=== PATIENT | male | born 1975 | race Caucasian/White ===

== ENCOUNTER 2016-08-04 05:26 | Observation (INO) | payer SELFPAY ==
[2016-08-04 06:09] LABS: ABSOLUTE EOSINOPHILS # (AUTO) 0.2 10^3/uL (0.0-0.6); ABSOLUTE LYMPHOCYTES (AUTO) 2.2 10^3/uL (0.5-4.7); ABSOLUTE MONOCYTES (AUTO) 0.7 10^3/uL (0.1-1.4); ABSOLUTE NEUT (AUTO) 9.3 10^3/uL (1.7-8.2); BASOPHILS % (AUTO) 0.3 % (0-2); HEMATOCRIT 40.3 % (37.9-51.0); HGB HCT DIFFERENCE 1.7; LYMPHOCYTES % (AUTO) 17.4 % (13-45); MEAN CORPUSCULAR HEMOGLOBIN 30.7 pg (27.0-33.4); MEAN CORPUSCULAR HGB CONC 34.8 g/dL (32.0-36.0); MEAN CORPUSCULAR VOLUME 88 fl (80-97); MONOCYTES % (AUTO) 5.6 % (3-13); RED BLOOD COUNT 4.58 10^6/uL (4.35-5.55); SEGMENTED NEUTROPHILS % (AUTO) 74.7 % (42-78); WHITE BLOOD COUNT 12.4 10^3/uL (4.0-10.5)
[2016-08-04 06:27] LABS: ALANINE AMINOTRANSFERASE 28 U/L (21-72); ALBUMIN 4.2 g/dL (3.5-5.0); ALKALINE PHOSPHATASE 79 U/L (38-126); ANION GAP 11 (5-19); ASPARTATE AMINO TRANSFERASE 16 U/L (17-59); BILIRUBIN,DIRECT 0.3 mg/dL (0.0-0.4); BILIRUBIN,TOTAL 0.5 mg/dL (0.2-1.3); BLOOD UREA NITROGEN 21 mg/dL (7-20); CALCIUM 9.2 mg/dL (8.4-10.2); CARBON DIOXIDE 26 mmol/L (22-30); CHLORIDE 101 mmol/L (98-107); CREATINE KINASE 41 U/L (55-170); CREATININE RESULT 1.12 mg/dL (0.52-1.25); GLUCOSE 128 mg/dL (75-110); POTASSIUM 4.2 mmol/L (3.6-5.0); SODIUM 138.3 mmol/L (137-145); TOTAL PROTEIN 6.8 g/dL (6.3-8.2)
[2016-08-04] MEDS ORDERED: LIDOCAINE 2% VISCOUS SOLN 20 ML UDCUP PO ONE (06:35)
[2016-08-04] MEDS ORDERED: METOCLOPRAMIDE HCL ORAL SOLN 10 MG/10 ML UDCUP PO ONE (06:35)
[2016-08-04] MEDS ORDERED: MAG HYDROX/AL HYDROX/SIMETH SUSP 30 ML UDCUP PO ONE (06:35)
[2016-08-04 06:39] LABS: CREATINE KINASE MB 0.25 ng/mL (<4.55)
--- NOTE | 2016-08-04 06:41 | RADIOLOGY REPORT (SQ) ---
EXAM DESCRIPTION: CHEST SINGLE VIEW COMPLETED DATE/TIME: 08/04/2016 6:17 am REASON FOR STUDY: CP COMPARISON: None. EXAM PARAMETERS: NUMBER OF VIEWS: One view. TECHNIQUE: Single frontal radiographic view of the chest acquired. RADIATION DOSE: NA LIMITATIONS: As below. FINDINGS: LUNGS AND PLEURA: No opacities, masses or pneumothorax. No pleural effusion. Mild likely emphysematous hyperinflation. Bilateral costophrenic angles minimally clipped off the image. MEDIASTINUM AND HILAR STRUCTURES: No masses. Contour normal. HEART AND VASCULAR STRUCTURES: Heart normal in size. Normal vasculature. BONES: No acute findings. HARDWARE: None in the chest. OTHER: No other significant finding. IMPRESSION: No acute cardiopulmonary findings. TECHNICAL DOCUMENTATION: JOB ID: [id number]
[2016-08-04 06:43] LABS: TROPONIN I < 0.012 ng/mL
--- NOTE | 2016-08-04 07:12 | EKG REPORT ---
SEVERITY:- NORMAL ECG - SINUS RHYTHM : Confirmed by: Phillip Singh 04-Aug-2016 07:11:17
--- NOTE | 2016-08-04 07:30 | ER Document Report ---
ED General - General Chief Complaint: Chest Pain Stated Complaint: CHEST PAIN Time Seen by Provider: 08/04/16 06:06 Mode of Arrival: Ambulatory Information source: Patient Notes: 41-year-old male no previous cardiac history presents with complaints of 2 week duration of generalized abdominal pain worse in the bilateral upper quadrants and epigastric region as well as midsternal. Patient denies any fevers or chills admits to nausea. Pain has been constant throughout. he denies any medical history TRAVEL OUTSIDE OF THE [place] IN LAST 30 DAYS: No - HPI Onset: Other Onset/Duration: Persistent Quality of pain: Cramping Severity: Mild Pain Level: 1 Associated symptoms: Nausea Exacerbated by: Denies Relieved by: Denies Similar symptoms previously: No Recently seen / treated by doctor: No - Related Data Allergies/Adverse Reactions: No Known Allergies Allergy (Unverified 09/15/10 19:04) Past Medical History - Social History Smoking Status: Never Smoker Cigarette use (# per day): No Chew tobacco use (# tins/day): No Smoking Education Provided: No Family History: Reviewed & Not Pertinent Patient has suicidal ideation: No Renal/ Medical History: Denies: Hx Peritoneal Dialysis Psychiatric Medical History: Reports: Hx Depression Surgical Hx: Negative - Immunizations Hx Diphtheria, Pertussis, Tetanus Vaccination: - unknown Review of Systems - Review of Systems Notes: REVIEW OF SYSTEMS: CONSTITUTIONAL : Denies fever, chills, or sweats. Denies recent illness. EENT: Denies eye, ear, throat, or mouth pain or symptoms. Denies nasal or sinus congestion or discharge. Denies throat, tongue, or mouth swelling or difficulty swallowing. CARDIOVASCULAR: Admits to chest RESPIRATORY: Denies cough, cold, or chest congestion. Denies shortness of breath, difficulty breathing, or wheezing. GASTROINTESTINAL: Admits to abdominal pain GENITOURINARY: Denies difficulty urinating, painful urination, burning, frequency, blood in urine, or discharge. MUSCULOSKELETAL: Denies back or neck pain or stiffness. Denies joint pain or swelling. SKIN: Denies rash, lesions or sores. HEMATOLOGIC : Denies easy bruising or bleeding. LYMPHATIC: Denies swollen, enlarged glands. NEUROLOGICAL: Denies confusion or altered mental status. Denies passing out or loss of consciousness. Denies dizziness or lightheadedness. Denies headache. Denies weakness or paralysis or loss of use of either side. Denies problems with gait or speech. Denies sensory loss, numbness, or tingling. Denies seizures. PSYCHIATRIC: Denies anxiety or stress. Denies depression, suicidal ideation, or homicidal ideation. ALL OTHER SYSTEMS REVIEWED AND NEGATIVE. Dictation was performed using [employer] voice recognition software PHYSICAL EXAMINATION: GENERAL: Well-appearing, well-nourished and in no acute distress. HEAD: Atraumatic, normocephalic. EYES: Pupils equal round and reactive to light, extraocular movements intact, sclera anicteric, conjunctiva are normal. ENT: Nares patent, oropharynx clear without exudates. Moist mucous membranes. NECK: Normal range of motion, supple without lymphadenopathy LUNGS: Breath sounds clear to auscultation bilaterally and equal. No wheezes rales or rhonchi. HEART: Regular rate and rhythm without murmurs ABDOMEN: Soft, reproducible tenderness of the abdomen without guarding Musculoskeletal: Normal range of motion, no pitting or edema. No cyanosis. NEUROLOGICAL: Cranial nerves grossly intact. Normal speech, normal gait. Normal sensory, motor exams PSYCH: Normal mood, normal affect. SKIN: Warm, Dry, normal turgor, no rashes or lesions noted. Physical Exam - Vital signs Vitals: Temp Pulse Resp BP Pulse Ox 98.9 F 97 20 125/79 99 08/04/16 05:28 08/04/16 05:28 08/04/16 05:28 08/04/16 05:28 08/04/16 05:28 Course - Re-evaluation Re-evalutation: 08/04/16 07:29 Patient's pain is noncardiac in nature, however troponin was performed and given that the pain is constant this will rule out a cardiac event. Otherwise a CT is in order to evaluate for any intra-abdominal abnormality. Patient believes he is having gastric reflux 08/04/16 07:52 Notified by radiology about acute appy due to 8mm diameter, Dr Eaton consulted 08/04/16 08:37 Patient admitted to surgical - Vital Signs Vital signs: Temp Pulse Resp BP Pulse Ox 98.9 F 97 20 128/68 H 98 08/04/16 05:28 08/04/16 05:28 08/04/16 05:28 08/04/16 07:01 08/04/16 07:01 - Laboratory Result Diagrams: 08/04/16 05:55 08/04/16 05:55 Laboratory results interpreted by me: 08/04/16 08/04/16 05:55 05:55 WBC 12.4 H Plt Count 144 L Absolute Neutrophils 9.3 H BUN 21 H Glucose 128 H AST 16 L Creatine Kinase 41 L - Diagnostic Test Radiology reviewed: Image reviewed, Reports reviewed - Appendicitis Discharge - Discharge Clinical Impression: Acute appendicitis Qualifiers: Acute appendicitis type: with generalized peritonitis Qualified Code(s): K35.2 - Acute appendicitis with generalized peritonitis Abdominal pain Qualifiers: Abdominal location: generalized Qualified Code(s): R10.84 - Generalized abdominal pain Condition: Stable Disposition: ADMITTED OBSERVATION Admitting Provider: Surgicalist Unit Admitted: Surgical Floor
--- NOTE | 2016-08-04 07:52 | RADIOLOGY REPORT (SQ) ---
EXAM DESCRIPTION: CT ABD/PELVIS WITH IV ONLY COMPLETED DATE/TIME: 08/04/2016 7:28 am REASON FOR STUDY: c/o MSCP and epigastric pain as well as nausea and diarrhea COMPARISON: 09/15/2010. TECHNIQUE: CT scan of the abdomen and pelvis performed using helical scanning technique with dynamic intravenous contrast injection. No oral contrast. Images reviewed with lung, soft tissue, and bone windows. Reconstructed coronal and sagittal MPR images reviewed. Delayed images for evaluation of the urinary system also acquired. All images stored on PACS. All CT scanners at this facility use dose modulation, iterative reconstruction, and/or weight based d osing when appropriate to reduce radiation dose to as low as reasonably achievable (ALARA). [facility]: Dose Right [facility]: CareDose [facility]: Dose Right [facility]: Teradose 4D [facility]: PictureMe Universe CONTRAST TYPE AND DOSE: contrast/concentration: Isovue 370.00 mg/ml; Total Contrast Delivered: 89.0 ml; Total Saline Delivered: 70.0 ml RENAL FUNCTION: None required. The patient is less than 50 years old. RADIATION DOSE: Up-to-date CT equipment and radiation dose reduction techniques were employed. CTDIv ol: 5.3 mGy. DLP: 556 mGy-cm.. LIMITATIONS: None. FINDINGS: LOWER CHEST: No significant findings. No nodules or infiltrates. LIVER: Normal size. No masses. No dilated ducts. SPLEEN: Normal size. No focal lesions. PANCREAS: No masses. No significant calcifications. No adjacent inflammation or peripancreatic fluid collections. Pancreatic duct not dilated. GALLBLADDER: No identified stones by CT criteria. No inflammatory changes to suggest cholecystitis. ADRENAL GLANDS: No significant masses or asymmetry. RIGHT KIDNEY AND URETER: No solid masses. No significant calcifications. No hydronephrosis or hyd roureter. LEFT KIDNEY AND URETER: No solid masses. No significant calcifications. No hydronephrosis or hydr oureter. AORTA AND VESSELS: No aneurysm. No dissection. Renal arteries, SMA, celiac without stenosis. RETROPERITONEUM: No retroperitoneal adenopathy, hemorrhage or masses. BOWEL AND PERITONEAL CAVITY: No masses or inflammatory changes. No free fluid or peritoneal masses. Mild mesenteric lymphadenopathy of the right lower abdominal quadrant includes a 1.0 x 0.5 cm lymph n ode, image 56 of series 3. APPENDIX: 0.8 cm diameter fluid-filled taut appearing appendix, image 35 of series 601 suggests early acute appendicitis. PELVIS: No mass or free fluid. Normal bladder. ABDOMINAL WALL: No masses. No hernias. BONES: Moderate L4-5 vacuum disc desiccation. OTHER: No other significant finding. IMPRESSION: Early acute appendicitis pattern. COMMENT: This report was called to AGUSTNÍ CHAPMAN DO at07:43 on 08/04/2016. TECHNICAL DOCUMENTATION: JOB ID: [id number] Quality ID # [id number]: Final reports with documentation of one or more dose reduction techniques (e.g., Au tomated exposure control, adjustment of the mA and/or kV according to patient size, use of iterative reconstruction technique) 2010 [employer]- All Rights Reserved
--- NOTE | 2016-08-04 08:36 | PDOC H&P ---
History of Present Illness Patient complains of: Chest and abdominal pain History of Present Illness: FLY PEREZ is a 41 year old male presented to the ER with several week history of productive cough with chest pain along with fever and chills. Patient also noted beginnings of diffuse abdominal pain that began last night. The pain has been crampy and diffuse patient had episode of emesis. Signs or symptoms of gastrointestinal bleed. Past Medical History Cardiac Medical History: Reports: None Pulmonary Medical History: Reports: None Psychiatric Medical History: Reports: Depression Social History Smoking Status: Former Smoker - Has quit smoking for the past year. Frequency of Alcohol Use: None - Heavy alcohol use in the past but has quit for the past couple of years. Family History Family History: Reviewed & Not Pertinent Parental Family History Reviewed: No Children Family History Reviewed: No Sibling(s) Family History Reviewed.: No Medication/Allergy Allergies/Adverse Reactions: No Known Allergies Allergy (Unverified 09/15/10 19:04) Physical Exam Vital Signs: Temp Pulse Resp BP Pulse Ox 98.9 F 97 20 128/68 H 98 08/04/16 05:28 08/04/16 05:28 08/04/16 05:28 08/04/16 07:01 08/04/16 07:01 Intake & Output 08/03/16 08/04/16 08/05/16 06:59 06:59 06:59 Weight 81.647 kg General appearance: PRESENT: cooperative, mild distress Eye exam: PRESENT: conjunctiva pink Neck exam: PRESENT: other - No tenderness no abnormal masses Respiratory exam: PRESENT: clear to auscultation radhames Cardiovascular exam: PRESENT: RRR GI/Abdominal exam: PRESENT: other - Very soft and flat with diffuse abdominal tenderness but no peritoneal signs. No palpable mass in the right lower quadrant with deep palpation. Extremities exam: PRESENT: other - No swelling. Results Laboratory Results: 08/04/16 05:55 08/04/16 05:55 08/04/16 08/04/16 08/04/16 05:55 05:55 05:55 WBC 12.4 H RBC 4.58 Hgb 14.0 Hct 40.3 MCV 88 MCH 30.7 MCHC 34.8 RDW 13.0 Plt Count 144 L Seg Neutrophils % 74.7 Lymphocytes % 17.4 Monocytes % 5.6 Eosinophils % 2.0 Basophils % 0.3 Absolute Neutrophils 9.3 H Absolute Lymphocytes 2.2 Absolute Monocytes 0.7 Absolute Eosinophils 0.2 Absolute Basophils 0.0 Sodium 138.3 Potassium 4.2 Chloride 101 Carbon Dioxide 26 Anion Gap 11 BUN 21 H Creatinine 1.12 Est GFR ( Amer) > 60 Est GFR (Non-Af Amer) > 60 Glucose 128 H Calcium 9.2 Total Bilirubin 0.5 AST 16 L ALT 28 Alkaline Phosphatase 79 Total Protein 6.8 Albumin 4.2 Lipase 113.5 08/04/16 08/04/16 05:55 05:55 Creatine Kinase 41 L CK-MB (CK-2) 0.25 Troponin I < 0.012 Impressions: Chest X-Ray 08/04/16 06:01 IMPRESSION: No acute cardiopulmonary findings. Abdomen/Pelvis CT 08/04/16 06:36 IMPRESSION: Early acute appendicitis pattern. Assessment & Plan - Diagnosis (1) Bronchitis Is this a current diagnosis for this admission?: YesPlan: Will consult hospitalist for management. (2) Abdominal pain Qualifiers: Abdominal location: generalized Qualified Code(s): R10.84 - Generalized abdominal pain Is this a current diagnosis for this admission?: YesPlan: Diffuse abdominal pain but abdomen very soft and CT scan that demonstrates no abnormalities other than a 8 mm appendix and mild mesenteric lymphadenopathy. No localization of symptoms nor signs. Possibility of early appendicitis does exist but without focal tenderness in the right lower quadrant I am reluctant to operate. I will admit the patient for observation
[2016-08-04] MEDS: NORMAL SALINE 1000 ML 1,000 ML IV PRN ×2 (08:56→16:22)
[2016-08-04] MEDS ORDERED: GLYCOPYRROLATE INJ 0.4 MG/2 ML VIAL ONE (09:15)
[2016-08-04] MEDS ORDERED: METOCLOPRAMIDE HCL INJ/PF 10 MG/2 ML SDV ONE (09:15)
[2016-08-04] MEDS ORDERED: NEOSTIGMINE METHYLSULFATE 10 MG/10 ML VIAL ONE (09:15)
[2016-08-04] MEDS ORDERED: ROCURONIUM BROMIDE INJ 50 MG/5 ML VIAL IV ONE (09:15)
[2016-08-04] MEDS ORDERED: SUCCINYLCHOLINE CHLORIDE INJ 200 MG/10 ML VIAL ONE (09:15)
[2016-08-04] MEDS ORDERED: ONDANSETRON HCL INJ/PF 4 MG/2 ML SDV ONE ×2 (09:15→20:46)
[2016-08-04] MEDS ORDERED: DEXAMETHASONE SOD PHOSPHATE INJ 4 MG/1 ML VIAL ONE (09:15)
[2016-08-04] MEDS ORDERED: ENOXAPARIN SODIUM INJ 40 MG/0.4 ML DISP.SYRIN SUBCUT ONE (10:00)
[2016-08-04] MEDS: MORPHINE SULFATE 10 MG/ML INJ IV PRN ×3 (13:14→20:50)
--- NOTE | 2016-08-04 15:20 | PDOC PROGRESS REPORT ---
Subjective Progress Note for:: 08/04/16 Subjective:: Still with diffuse abdominal pain. Not localizing. Decreased after pain medication. Physical Exam Vital Signs: Temp Pulse Resp BP Pulse Ox 98.4 F 75 20 131/78 H 100 08/04/16 10:58 08/04/16 10:58 08/04/16 10:58 08/04/16 10:58 08/04/16 10:58 Intake & Output 08/03/16 08/04/16 08/05/16 06:59 06:59 06:59 Weight 73.2 kg General appearance: PRESENT: no acute distress, cooperative GI/Abdominal exam: PRESENT: other - Soft, nondistended, minimal diffuse abdominal tenderness and no focal tenderness in the right lower quadrant even with deep palpation. No peritoneal signs. Results Laboratory Results: 08/04/16 09:33 Troponin I < 0.012 Impressions: Chest X-Ray 08/04/16 06:01 IMPRESSION: No acute cardiopulmonary findings. Abdomen/Pelvis CT 08/04/16 06:36 IMPRESSION: Early acute appendicitis pattern. Assessment & Plan - Diagnosis (1) Bronchitis Is this a current diagnosis for this admission?: Yes (2) Abdominal pain Qualifiers: Abdominal location: generalized Qualified Code(s): R10.84 - Generalized abdominal pain Is this a current diagnosis for this admission?: YesPlan: Diffuse abdominal pain but abdomen very soft and CT scan that demonstrates no abnormalities other than a 8 mm appendix and mild mesenteric lymphadenopathy. No localization of symptoms nor signs. I have re-reviewed the CT scan with the radiologist. The appendix does measure at 8 mm but there is no inflammatory changes. With no right lower quadrant abdominal tenderness with deep palpation I do not think he has appendicitis. Will continue to keep the patient n.p.o. As appendicitis is ruled out, will consider upper endoscopy to rule out esophagitis and peptic ulcer disease.
[2016-08-04 17:08] LABS: ABSOLUTE LYMPHOCYTES (AUTO) 1.2 10^3/uL (0.5-4.7); ABSOLUTE MONOCYTES (AUTO) 0.7 10^3/uL (0.1-1.4); ABSOLUTE NEUT (AUTO) 7.7 10^3/uL (1.7-8.2); BASOPHILS % (AUTO) 0.3 % (0-2); EOSINOPHILS % (AUTO) 0.1 % (0-6); HEMOGLOBIN 13.5 g/dL (13.5-17.0); HGB HCT DIFFERENCE 0.5; LYMPHOCYTES % (AUTO) 12.6 % (13-45); MEAN CORPUSCULAR HEMOGLOBIN 30.1 pg (27.0-33.4); MEAN CORPUSCULAR HGB CONC 33.8 g/dL (32.0-36.0); MEAN CORPUSCULAR VOLUME 89 fl (80-97); MONOCYTES % (AUTO) 6.9 % (3-13); RED BLOOD COUNT 4.49 10^6/uL (4.35-5.55); RED CELL DISTRIBUTION WIDTH 12.7 % (11.5-14.0); SEGMENTED NEUTROPHILS % (AUTO) 80.1 % (42-78); WHITE BLOOD COUNT 9.6 10^3/uL (4.0-10.5)
--- NOTE | 2016-08-04 17:54 | PDOC CONSULTATION ---
Consultation Consult Date: 08/04/16 Attending physician:: NITHYA GARDNER Consult reason:: chest pain History of Present Illness Admission Date/PCP: 08/04/16 08:36 Patient complains of: Abdominal pain and chest pain History of Present Illness: FLY PEREZ is a 41 year old male presented to the ER with several week history of chest pain along with fever and chills. Patient also noted beginnings of diffuse abdominal pain that began last night. The pain has been crampy and diffuse patient had episode of emesis in the ER. Denies any melena hematochezia or hematemesis. Patient admitted by surgical service due to findings suggestive of appendicitis on CT scan. consultation was made for evaluation of chest pain. Patient reports that he work with heavy physical activity at times without having any chest pain. There is no shortness of breath. No lower extremity edema. No leg pains associated. He reports being active. No recent prolonged traveling. He had a chest pain about 2 weeks before admission where it is noted to have some bloating. At times there will be burping with gaseous sensation but no associated shortness of breath. For the past 3 days he was having cough sinus congestion and sore throat. Patient started to develop some fever as well as sweating. Past Medical History Cardiac Medical History: Reports: None Denies: Congestive Heart Failure, Myocardial Infarction, Hypertension Pulmonary Medical History: Reports: None Denies: Asthma, Bronchitis, Chronic Obstructive Pulmonary Disease (COPD), Pneumonia, Tuberculosis Neurological Medical History: Denies: Seizures Renal/ Medical History: Denies: End Stage Renal Disease GI Medical History: Denies: Cirrhosis, Gastroesophageal Reflux Disease Musculoskeltal Medical History: Denies: Arthritis Psychiatric Medical History: Reports: Depression, Substance Abuse Denies: Bipolar Disorder Hematology: Denies: Anemia, Bleeding Tendencies Past Surgical History Past Surgical History: Reports: Other - Patient denies any recent operations Social History Smoking Status: Former Smoker - Fluid 2 years ago Frequency of Alcohol Use: None - Heavy alcohol use in the past but has quit for the past couple of years. Hx Recreational Drug Use: Yes Drugs: Other - Prescription narcotics but quit 2 years ago - Advance Directive Resuscitation Status: Full Code Family History Family History: None, Other - no reported premature coronary artery disease Parental Family History Reviewed: Yes Children Family History Reviewed: Yes Sibling(s) Family History Reviewed.: Yes Medication/Allergy Allergies/Adverse Reactions: shellfish derived Allergy (Mild, Verified 08/04/16 15:00) Nausea Review of Systems Constitutional: PRESENT: chills, fever(s). ABSENT: headache(s), night sweats, weight gain, weight loss Eyes: ABSENT: visual disturbances Ears: ABSENT: hearing changes Nose, Mouth, and Throat: ABSENT: mouth pain, vertigo Cardiovascular: PRESENT: chest pain. ABSENT: dyspnea on exertion, edema, orthropnea, palpitations Respiratory: PRESENT: cough, dyspnea - Occasional for the past 3 days more of easy fatigability, sputum - Yellowish. ABSENT: hemoptysis Gastrointestinal: PRESENT: abdominal pain - Started early this morning, nausea, vomiting. ABSENT: constipation, diarrhea, hematemesis, hematochezia, melena Genitourinary: ABSENT: difficulty urinating, dysuria, hematuria Musculoskeletal: ABSENT: joint swelling Integumentary: ABSENT: pruritus, rash, wounds Neurological: ABSENT: abnormal gait, abnormal speech, confusion, dizziness, focal weakness, syncope Psychiatric: ABSENT: anxiety, depression, homidical ideation, suicidal ideation Endocrine: ABSENT: cold intolerance, heat intolerance, polydipsia, polyuria Hematologic/Lymphatic: ABSENT: easy bleeding, easy bruising Physical Exam Vital Signs: Temp Pulse Resp BP Pulse Ox 99.2 F 74 20 138/76 H 98 08/04/16 16:07 08/04/16 16:07 08/04/16 16:07 08/04/16 16:07 08/04/16 16:07 Intake & Output 08/03/16 08/04/16 08/05/16 06:59 06:59 06:59 Weight 73.2 kg General appearance: PRESENT: no acute distress, well-developed, well-nourished Head exam: PRESENT: atraumatic, normocephalic Eye exam: PRESENT: conjunctiva pink, EOMI, PERRLA. ABSENT: scleral icterus Ear exam: PRESENT: normal external ear exam. ABSENT: drainage Mouth exam: PRESENT: moist, neck supple, tongue midline Throat exam: ABSENT: post pharyngeal erythema, tonsillar erythema Neck exam: ABSENT: carotid bruit, JVD, lymphadenopathy, thyromegaly Respiratory exam: PRESENT: clear to auscultation radhames, unlabored. ABSENT: rales , rhonchi, wheezes Cardiovascular exam: PRESENT: RRR. ABSENT: diastolic murmur, rubs, systolic murmur Pulses: PRESENT: normal dorsalis pedis pul Vascular exam: PRESENT: normal capillary refill GI/Abdominal exam: PRESENT: guarding - voluntary, normal bowel sounds, soft, tenderness - Periumbilically diffusely. ABSENT: distended, mass - Limited due to abdominal discomfort, organolmegaly - Limited to the abdominal discomfort, rebound Rectal exam: PRESENT: deferred Extremities exam: PRESENT: full ROM. ABSENT: calf tenderness, clubbing, pedal edema Neurological exam: PRESENT: alert, awake, oriented to person, oriented to place , oriented to time, oriented to situation, CN II-XII grossly intact. ABSENT: motor sensory deficit Psychiatric exam: PRESENT: appropriate affect, normal mood. ABSENT: homicidal ideation, suicidal ideation Skin exam: PRESENT: dry, intact, warm. ABSENT: cyanosis, rash Results Laboratory Results: 08/04/16 16:55 08/04/16 16:55 WBC 9.6 RBC 4.49 Hgb 13.5 Hct 40.0 MCV 89 MCH 30.1 MCHC 33.8 RDW 12.7 Plt Count 125 L Seg Neutrophils % 80.1 H Lymphocytes % 12.6 L Monocytes % 6.9 Eosinophils % 0.1 Basophils % 0.3 Absolute Neutrophils 7.7 Absolute Lymphocytes 1.2 Absolute Monocytes 0.7 Absolute Eosinophils 0.0 Absolute Basophils 0.0 08/04/16 09:33 Troponin I < 0.012 Impressions: Chest X-Ray 08/04/16 06:01 IMPRESSION: No acute cardiopulmonary findings. Abdomen/Pelvis CT 08/04/16 06:36 IMPRESSION: Early acute appendicitis pattern. Assessment & Plan - Diagnosis (1) Chest pain Qualifiers: Chest pain type: unspecified Qualified Code(s): R07.9 - Chest pain, unspecified Is this a current diagnosis for this admission?: Yes (2) Abdominal pain Qualifiers: Abdominal location: generalized Qualified Code(s): R10.84 - Generalized abdominal pain Is this a current diagnosis for this admission?: Yes (3) History of depression Is this a current diagnosis for this admission?: Yes (4) History of substance abuse Is this a current diagnosis for this admission?: Yes - Time Time Spent: 50 to 70 Minutes - Plan Summary Plan Summary: We will serially obtain cardiac enzymes. We will obtain echocardiogram to check for wall motion abnormality. If echocardiogram is normal, chest pain most likely noncardiac. Patient had atypical symptoms. I will try him on twice a day proton pump inhibitors see if the discomfort would go away. In the meantime I will begin antibiotic for bronchitis. Thank you so much for this consultation. We will follow the patient with you.
[2016-08-04 18:31] LABS: CREATINE KINASE MB < 0.22 ng/mL (<4.55); TROPONIN I < 0.012 ng/mL
[2016-08-04] MEDS: LEVOFLOXACIN 750 MG/D5W RTU 750 MG/150 ML RTUPB IV SCH (18:47)
[2016-08-04] MEDS ORDERED: ONDANSETRON HCL INJ/PF 4 MG/2 ML SDV IV PRN (20:39)
[2016-08-05] MEDS: MORPHINE SULFATE 10 MG/ML INJ IV PRN ×4 (00:22→16:22)
[2016-08-05] MEDS: NORMAL SALINE 1000 ML 1,000 ML IV PRN (04:27)
[2016-08-05] MEDS: LANSOPRAZOLE 30 MG TAB.RAP.DR PO SCH ×2 (06:22→18:02)
[2016-08-05] MEDS ORDERED: ACETAMINOPHEN 325 MG TABLET PO PRN ×2 (07:01→12:30)
--- NOTE | 2016-08-05 09:38 | PDOC PROGRESS REPORT ---
Subjective Progress Note for:: 08/05/16 Subjective:: Patient's chest pain has resolved. Abdominal pain is better. Patient reports some headache with the morphine. Denies any diaphoresis, shortness of breath, PND orthopnea. No reported chills or fever. Physical Exam Vital Signs: Temp Pulse Resp BP Pulse Ox 98.3 F 88 20 124/70 98 08/05/16 07:37 08/05/16 07:37 08/05/16 07:37 08/05/16 07:37 08/05/16 07:37 Intake & Output 08/04/16 08/05/16 08/06/16 06:59 06:59 06:59 Output Total 450 Balance -450 Weight 73.2 kg General appearance: PRESENT: no acute distress, cooperative Head exam: PRESENT: normocephalic Eye exam: PRESENT: EOMI Mouth exam: PRESENT: moist, neck supple Neck exam: ABSENT: JVD Respiratory exam: PRESENT: clear to auscultation radhames. ABSENT: rhonchi, wheezes Cardiovascular exam: PRESENT: RRR. ABSENT: gallop GI/Abdominal exam: PRESENT: hyperactive bowel sounds, soft. ABSENT: distended, tenderness Extremities exam: ABSENT: pedal edema Neurological exam: PRESENT: alert, awake, oriented to situation Skin exam: PRESENT: warm. ABSENT: cyanosis, dry Results Laboratory Results: 08/04/16 16:55 08/04/16 16:55 WBC 9.6 RBC 4.49 Hgb 13.5 Hct 40.0 MCV 89 MCH 30.1 MCHC 33.8 RDW 12.7 Plt Count 125 L Seg Neutrophils % 80.1 H Lymphocytes % 12.6 L Monocytes % 6.9 Eosinophils % 0.1 Basophils % 0.3 Absolute Neutrophils 7.7 Absolute Lymphocytes 1.2 Absolute Monocytes 0.7 Absolute Eosinophils 0.0 Absolute Basophils 0.0 08/04/16 08/04/16 08/04/16 09:33 17:48 17:48 Creatine Kinase 33 L CK-MB (CK-2) < 0.22 Troponin I < 0.012 < 0.012 Impressions: Chest X-Ray 08/04/16 06:01 IMPRESSION: No acute cardiopulmonary findings. Abdomen/Pelvis CT 08/04/16 06:36 IMPRESSION: Early acute appendicitis pattern. Assessment & Plan - Diagnosis (1) Chest pain Qualifiers: Chest pain type: unspecified Qualified Code(s): R07.9 - Chest pain, unspecified Is this a current diagnosis for this admission?: Yes (2) Abdominal pain Qualifiers: Abdominal location: generalized Qualified Code(s): R10.84 - Generalized abdominal pain Is this a current diagnosis for this admission?: Yes (3) History of depression Is this a current diagnosis for this admission?: Yes (4) History of substance abuse Is this a current diagnosis for this admission?: Yes - Time Time Spent with patient: 25-34 minutes - Plan Summary Plan Summary: Patient's chest pain probably related to gastrointestinal symptoms. Symptoms improved with proton pump inhibitor and analgesics. His cardiac enzymes were negative. EKG was likewise reportedly normal. Awaiting echocardiogram for wall motion abnormalities. If negative, patient can have stress test on an outpatient basis if desired. Continue antibiotic for bronchitis symptoms. Continue supportive care.
[2016-08-05] MEDS ORDERED: LIDOCAINE 2% INJ-PF (100 MG/5 ML) SYRINGE ONE (10:08)
[2016-08-05] MEDS ORDERED: FENTANYL CITRATE INJ/PF 250 MCG/5 ML AMPULE ONE (10:08)
[2016-08-05] MEDS: ENOXAPARIN SODIUM INJ 40 MG/0.4 ML DISP.SYRIN SUBCUT SCH (10:08)
[2016-08-05] MEDS ORDERED: DEXMEDETOMIDINE INJ 80 MCG/20 ML VIAL IV ONE (10:09)
[2016-08-05] MEDS ORDERED: ACETAMINOPHEN 100 ML IV ONE (10:09)
[2016-08-05] MEDS ORDERED: MIDAZOLAM 2 MG/2 ML INJ ONE (10:09)
[2016-08-05] MEDS ORDERED: PROPOFOL INJ 200 MG/20 ML VIAL IV ONE (10:09)
[2016-08-05] MEDS ORDERED: BUPIVACAINE HCL 0.25 % INJ/PF (2.5 MG/1 ML) 30 ML VIAL ONE (10:50)
[2016-08-05] MEDS ORDERED: CEFAZOLIN INJ 1 GM VIAL ONE (10:57)
[2016-08-05] MEDS ORDERED: FENTANYL CITRATE INJ/PF 100 MCG/2 ML AMPUL ONE (12:28)
--- NOTE | 2016-08-05 13:09 | OPERATIVE REPORT E ---
Operative Report NAME: FLY PEREZ : 1975 AGE: 41Y DATE OF SURGERY: ROOM: 212 PREOPERATIVE DIAGNOSIS: Acute appendicitis. POSTOPERATIVE DIAGNOSIS: Acute appendicitis. OPERATION: Laparoscopic appendectomy. SURGEON: SIM SHEA M.D. 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 He had a CAT scan yesterday which showed a dilated appendix. The patient, however, did not have any tenderness in the abdomen when initially seen, however, this morning, patient complained of pains in both lower quadrants. He was then taken to the OR for a laparoscopic appendectomy. PROCEDURE: After adequate general anesthesia, the patient was placed in the supine position and the abdomen prepped and draped in the usual sterile fashion. An infraumbilical incision was made and the fascia divided and the Alyson trocar inserted through the fascia into the abdominal cavity. CO2 insufflated to 15 mmHg. Two other trocars were placed, a 5-mm in the suprapubic and a 12-mm in the left lower quadrant. The cecum was then identified but the base of the appendix, I had difficulty lifting it up. Because of this, there were some adhesions in the lateral gutter that were lysed with the use of Harmonic bethany. Next, the appendix was then bluntly dissected and going to the retrocecal area. It was noted to be inflamed with a few areas of starting necrosis. The mesoappendix was subsequently divided with the use of Harmonic bethany while lifting up the appendix with a Earnest. The base of the appendix was subsequently stapled with an Endo BENITO. The stump was noted to be relatively free of bleeding, however, a Hemoclip was placed on the one area that appears to be oozing a little bit. The appendix was then placed in an Endobag and pulled out through the epigastric port. Next, the appendiceal stump was then checked and no evidence of bleeding was noted. The area was gently irrigated and suctioned out. All of the trocars were then removed and no evidence of bleeding at the trocar sites. The fascial defect in the infraumbilical area was closed with a single [id number] suture using 0 Vicryl. The left lower quadrant fascial defect was closed with a single suture using 0 Vicryl. All of the skin incisions were then closed with running subcuticular closure using 4-0 Vicryl undyed. Sterile dressings with Steri-Strips were placed over the incision sites. The patient tolerated the procedure well and was brought to the recovery room in satisfactory condition. The needle, sponge and instrument counts were all correct and estimated blood loss was minimal. DICTATING PHYSICIAN: SIM SHEA M.D. [id number] PHY#: [id number] ID: [id number] JOB#: [id number] ACCT: [id number] cc:SIM SHEA M.D. >
[2016-08-05] MEDS: LEVOFLOXACIN 750 MG/D5W RTU 750 MG/150 ML RTUPB IV SCH (18:01)
[2016-08-05] MEDS: OXYCODONE-ACETAMINOPHEN 5-325 MG TABLET PO PRN (19:48)
[2016-08-06] MEDS: OXYCODONE-ACETAMINOPHEN 5-325 MG TABLET PO PRN ×3 (00:02→08:19)
[2016-08-06] MEDS: LANSOPRAZOLE 30 MG TAB.RAP.DR PO SCH (05:14)
[2016-08-06] MEDS: NORMAL SALINE 1000 ML 1,000 ML IV PRN (05:21)
[2016-08-06 06:07] LABS: ABSOLUTE LYMPHOCYTES (AUTO) 2.4 10^3/uL (0.5-4.7); ABSOLUTE MONOCYTES (AUTO) 0.7 10^3/uL (0.1-1.4); ABSOLUTE NEUT (AUTO) 7.6 10^3/uL (1.7-8.2); BASOPHILS % (AUTO) 0.4 % (0-2); EOSINOPHILS % (AUTO) 0.3 % (0-6); HEMATOCRIT 37.5 % (37.9-51.0); HEMOGLOBIN 12.7 g/dL (13.5-17.0); HGB HCT DIFFERENCE 0.6; LYMPHOCYTES % (AUTO) 22.1 % (13-45); MEAN CORPUSCULAR HEMOGLOBIN 30.3 pg (27.0-33.4); MEAN CORPUSCULAR VOLUME 89 fl (80-97); MONOCYTES % (AUTO) 6.6 % (3-13); RED CELL DISTRIBUTION WIDTH 13.1 % (11.5-14.0); SEGMENTED NEUTROPHILS % (AUTO) 70.6 % (42-78); WHITE BLOOD COUNT 10.8 10^3/uL (4.0-10.5)
[2016-08-06 06:28] LABS: ANION GAP 10 (5-19); BLOOD UREA NITROGEN 11 mg/dL (7-20); CARBON DIOXIDE 27 mmol/L (22-30); CHLORIDE 102 mmol/L (98-107); CREATININE RESULT 0.93 mg/dL (0.52-1.25); GLUCOSE 95 mg/dL (75-110); POTASSIUM 3.9 mmol/L (3.6-5.0); SODIUM 139.2 mmol/L (137-145)
[2016-08-06] MEDS: ENOXAPARIN SODIUM INJ 40 MG/0.4 ML DISP.SYRIN SUBCUT SCH (08:18)
--- NOTE | 2016-08-06 09:32 | PDOC PROGRESS REPORT ---
Subjective Progress Note for:: 08/06/16 Subjective:: Patient voices no complaints at this time. Headache resolved. No chest pain. Abdominal pain is better. Patient tolerated surgery well. Tolerating oral intake. Physical Exam Vital Signs: Temp Pulse Resp BP Pulse Ox 97.7 F 62 18 117/76 96 08/06/16 08:04 08/06/16 08:04 08/06/16 08:04 08/06/16 08:04 08/06/16 08:04 Intake & Output 08/05/16 08/06/16 08/07/16 06:59 06:59 06:59 Intake Total 2250 Output Total 450 5 Balance -450 2245 Weight 73.2 kg General appearance: PRESENT: no acute distress, cooperative Head exam: PRESENT: normocephalic Eye exam: PRESENT: EOMI Mouth exam: PRESENT: moist, neck supple Neck exam: ABSENT: JVD Respiratory exam: PRESENT: clear to auscultation radhames. ABSENT: rhonchi, wheezes Cardiovascular exam: PRESENT: RRR. ABSENT: gallop GI/Abdominal exam: PRESENT: hypoactive bowel sounds, soft. ABSENT: distended Extremities exam: ABSENT: pedal edema Neurological exam: PRESENT: alert, awake, oriented to person, oriented to place , oriented to time, oriented to situation Skin exam: PRESENT: dry, warm. ABSENT: cyanosis Results Laboratory Results: 08/06/16 05:10 08/06/16 05:10 08/06/16 08/06/16 05:10 05:10 WBC 10.8 H RBC 4.20 L Hgb 12.7 L Hct 37.5 L MCV 89 MCH 30.3 MCHC 34.0 RDW 13.1 Plt Count 127 L Seg Neutrophils % 70.6 Lymphocytes % 22.1 Monocytes % 6.6 Eosinophils % 0.3 Basophils % 0.4 Absolute Neutrophils 7.6 Absolute Lymphocytes 2.4 Absolute Monocytes 0.7 Absolute Eosinophils 0.0 Absolute Basophils 0.0 Sodium 139.2 Potassium 3.9 Chloride 102 Carbon Dioxide 27 Anion Gap 10 BUN 11 Creatinine 0.93 Est GFR ( Amer) > 60 Est GFR (Non-Af Amer) > 60 Glucose 95 Calcium 9.0 08/04/16 08/04/16 08/04/16 09:33 17:48 17:48 Creatine Kinase 33 L CK-MB (CK-2) < 0.22 Troponin I < 0.012 < 0.012 Impressions: Chest X-Ray 08/04/16 06:01 IMPRESSION: No acute cardiopulmonary findings. Abdomen/Pelvis CT 08/04/16 06:36 IMPRESSION: Early acute appendicitis pattern. Assessment & Plan - Diagnosis (1) Chest pain Qualifiers: Chest pain type: unspecified Qualified Code(s): R07.9 - Chest pain, unspecified Is this a current diagnosis for this admission?: Yes (2) Abdominal pain Qualifiers: Abdominal location: generalized Qualified Code(s): R10.84 - Generalized abdominal pain Is this a current diagnosis for this admission?: Yes (3) History of depression Is this a current diagnosis for this admission?: Yes (4) History of substance abuse Is this a current diagnosis for this admission?: Yes - Time Time Spent with patient: 15-24 minutes - Plan Summary Plan Summary: Patient can be discharged home from the medical standpoint. Patient can go home with oral Augmentin for a total of 7 days. Follow-up echocardiogram report as outpatient with primary care physician. Stress test outpatient. We will sign off from his case. Please reconsult as as needed.
[2016-08-06 10:46] VITALS: BP 124/70
--- NOTE | 2016-08-06 12:28 | DISCHARGE SUMMARY E ---
Discharge Summary NAME: FLY PEREZ : 1975 AGE: 41Y ADMITTED: 08/04/2016 DISCHARGED: 08/06/2016 FINAL DIAGNOSIS: 1. Acute appendicitis. 2. Bronchitis. HOSPITAL COURSE: This is a 41-year-old male who was admitted for cough, chest pains, and fever and chills which started about a week prior. Also noted to have diffuse abdominal pains the night prior to admission. He had a CAT scan of the abdomen that revealed dilated appendix but no evidence of inflammation. Patient did not have any abdominal tenderness when see by Dr. Eaton on admission. Hospitalist consultation was done with Dr. Gibson who diagnosed him to have bronchitis. However, on 08/05/2016 patient complained of more pains in the abdomen and more tenderness primarily in the right lower quadrant. He was then taken to the OR for lap appendectomy on 08/05/2016 for acute appendicitis. Postoperatively he did well and remained afebrile and tolerating soft diet. He was then discharged improved on 08/06/2016 with the above final diagnosis. Patient to continue on Augmentin 875 mg b.i.d. for a week by order of Dr. Gibson the hospitalist. Patient advised not to do any lifting more than 10 pounds for the next week and the gradually increase his activity. He can have a regular diet. He will be seen in the [facility] in about 2 weeks. A prescription for Percocet was given to take 1 every 6 hours as needed p.r.n. for pain. DICTATING PHYSICIAN: SIM SHEA M.D. [id number] PHY#: [id number] ID: [id number] JOB#: [id number] ACCT: [id number] cc:SIM SHEA M.D., E. R. >
--- NOTE | 2016-08-08 17:32 | XCELERA REPORT ---
[address] [address] Transthoracic Echocardiogram Report Name: FLY PEREZ Age: 41 yrs Gender: Male : 1975 Patient Status: Inpatient Patient Location: 2N\S\212\S\B Study Date: 08/05/2016 09:02 AM Height: 72 in Weight: 161 lb BSA: 1.9 m2 Procedure: A two-dimensional transthoracic echocardiogram with color flow and Doppler was performed. The study was technically adequate with some images being suboptimal in quality. Reason For Study: chest pain History: chest pain. Ordering Physician: ZHANNA NUNO Performed By: Horace Grant Interpretation Summary The left ventricle is normal in size. There is normal left ventricular wall thickness. LV EF is 65% Left ventricular systolic function is normal. Doppler measurements suggest normal left ventricular diastolic function The left ventricular wall motion is normal. There is no thrombus. There is no ventricular septal defect visualized. The right ventricle is normal in size and function. The right atrium is normal. The left atrial size is normal. The interatrial septum is intact with no evidence for an atrial septal defect. There is no mitral valve stenosis. There is no evidence of mitral valve prolapse. There is a mild amount of mitral regurgitation The aortic valve is trileaflet. The aortic valve opens well. There is no aortic valve stenosis There is no LVOT obstruction. There is a trace amount of aortic regurgitation There is no tricuspid stenosis. There is a trace amount of tricuspid regurgitation Right ventricular systolic pressure is normal. RVAP is 29 mm of Hg , with RA mean of 5. There is no pericardial effusion. MMode/2D Measurements \T\ Calculations RVDd: 2.5 cm LVIDd: 5.0 cm FS: 41.0 % Ao root diam: 3.0 cm IVSd: 0.78 cm LVIDs: 2.9 cm EDV(Teich): 118.2 ml LVPWd: 0.84 cm ESV(Teich): 33.5 ml Ao root area: 7.1 cm2 EF(Teich): 71.6 % LA dimension: 3.4 cm Doppler Measurements \T\ Calculations MV E max miriam: MV P1/2t max miriam: Ao V2 max: LV V1 max P.9 cm/sec 69.6 cm/sec 151.3 cm/sec 5.2 mmHg MV A max miriam: MV P1/2t: 63.5 msec Ao max PG: LV V1 max: 50.0 cm/sec 9.2 mmHg 113.5 cm/sec MV E/A: 1.4 MVA(P1/2t): 3.5 cm2 MV dec slope: 320.8 cm/sec2 PA V2 max: PI end-d miriam: TR max miriam: 96.7 cm/sec 100.4 cm/sec 242.8 cm/sec PA max PG: TR max P.7 mmHg 23.6 mmHg Left Ventricle The left ventricle is normal in size. There is normal left ventricular wall thickness. LV EF is 65%. Left ventricular systolic function is normal. Doppler measurements suggest normal left ventricular diastolic function. The left ventricular wall motion is normal. There is no thrombus. There is no ventricular septal defect visualized. Right Ventricle The right ventricle is normal in size and function. Atria The right atrium is normal. The left atrial size is normal. The interatrial septum is intact with no evidence for an atrial septal defect. Mitral Valve There is no evidence of mitral valve prolapse. There is no vegetation seen on the mitral valve. There is no mitral valve stenosis. There is a mild amount of mitral regurgitation. Aortic Valve The aortic valve is trileaflet. The aortic valve opens well. There is no aortic valvular vegetation. There is no aortic valve stenosis. There is no LVOT obstruction. There is a trace amount of aortic regurgitation. Tricuspid Valve There is no tricuspid stenosis. There is a trace amount of tricuspid regurgitation. Right ventricular systolic pressure is normal. RVAP is 29 mm of Hg , with RA mean of 5. Pulmonic Valve There is no pulmonic valvular stenosis. There is a trace amount of pulmonic regurgitation. Great Vessels The aortic root is normal size. Effusions There is no pericardial effusion. : ZHANNA NUNO > Pricila Castro
== END 2016-08-06 11:42 | disposition home or self-care (01) ==
LOC: ER 05:26 → EH 08:36 → UNDOADMOB 08:56 → 2N 10:45
PROVIDERS: ATTEND Surgery
PROC: 0DTJ4ZZ Resection of Appendix, Percutaneous Endoscopic Approach (ICD-10-PCS; principal; 2016-08-04)
DX: K35.3 Acute appendicitis with localized peritonitis (principal); J40 Bronchitis, not specified as acute or chronic; R59.1 Generalized enlarged lymph nodes; G44.40 Drug-induced headache, not elsewhere classified, not intractable; T40.2X5A Adverse effect of other opioids, initial encounter; Y92.239 Unspecified place in hospital as the place of occurrence of the external cause; Z87.891 Personal history of nicotine dependence; Z87.898 Personal history of other specified conditions
CPT/HCPCS: 93005; 99285; 96372; 36415 ×2; 82553; 82550; 83690; 85025 ×2; 80048; 80053; 84484; 88304 ×2; 93306; 71010; 74177; 93010; 44970; G0378 ×4; J2250; J0690; J3490 ×6; J1100; J3010 ×2; J2001; J2765; J2270 ×2; J1650 ×2; J0330; J2405; J7030 ×3; J2704; J1956 ×2; J0131; 840

== ENCOUNTER → 2017-01-27 | Outpatient (CLI) | payer MEDICAID ==
--- NOTE | 2017-01-27 13:02 | RADIOLOGY REPORT (SQ) ---
EXAM DESCRIPTION: LUMBAR SPINE COMPLETE COMPLETED DATE/TIME: 01/27/2017 12:54 pm REASON FOR STUDY: LUMBAGO WITH SCIATICA, LEFT SIDE M54.42 LUMBAGO WITH SCIATICA, LEFT SIDE COMPARISON: None. NUMBER OF VIEWS: Five views including obliques. TECHNIQUE: AP, lateral, oblique, and sacral radiographic images acquired of the lumbar spine. LIMITATIONS: None. FINDINGS: MINERALIZATION: Normal. SEGMENTATION: Normal. No transitional anatomy. ALIGNMENT: Normal. VERTEBRAE: Maintained height. No fracture or worrisome bone lesion. DISCS: Disc space narrowing at L4-L5. POSTERIOR ELEMENTS: Pedicles and facets are intact. No pars defect or posterior arch defects. HARDWARE: None in the spine. PARASPINAL SOFT TISSUES: Normal. PELVIS: Intact as visualized. No fractures or worrisome bone lesions. SI joints intact. OTHER: No other significant finding. IMPRESSION: DISC SPACE NARROWING AT L4-L 5. NO ACUTE FINDINGS. TECHNICAL DOCUMENTATION: JOB ID: [id number]- All Rights Reserved
== END ==
LOC: OD 12:42
PROVIDERS: ATTEND Physician Assistant
DX: M54.42 Lumbago with sciatica, left side (principal)
CPT/HCPCS: 72110